=== PATIENT | male | born 1990 | race Caucasian/White ===

== ENCOUNTER 2018-02-16 14:44 | Inpatient (IN) ==
[2018-02-16 22:31] LABS: Baso # (Auto) 0.1 th/mm3 (0.0-0.2); Baso % (Auto) 0.9 % (0.0-2.0); Eos # (Auto) 0.1 th/mm3 (0.0-0.4); Eos % (Auto) 1.4 % (0.0-4.0); Hematocrit 41.9 % (39.0-51.0); Hemoglobin 13.9 gm/dL (13.0-17.0); Lymph # (Auto) 2.4 th/mm3 (1.0-4.8); Lymph % (Auto) 30.2 % (9.0-44.0); Mean Corpuscular HGB Conc 33.1 % (32.0-36.0); Mean Corpuscular Hemoglobin 27.7 pg (27.0-34.0); Mean Corpuscular Volume 83.8 fL (80.0-100.0); Mean Platelet Volume 7.8 fL (7.0-11.0); Mono # (Auto) 0.9 th/mm3 (0.0-0.9); Mono % (Auto) 11.6 % (0.0-8.0); Neut # (Auto) 4.4 th/mm3 (1.8-7.7); Neut % (Auto) 55.9 % (16.0-70.0); Platelet Count 221 th/mm3 (150-450); Red Cell Distribution Width 13.5 % (11.6-17.2); White Blood Count 7.9 th/mm3 (4.0-11.0)
[2018-02-16 22:45] LABS: Amphetamine Screen,Urine Neg (Neg); Barbiturate Screen,Urine Neg (Neg); Cannabinoid Screen,Urine Neg (Neg); Cocaine Screen,Urine Neg (Neg)
[2018-02-16 22:46] LABS: Opiate Screen,Urine Neg (Neg)
--- NOTE | 2018-02-16 22:48 | ED ---
HPI General Chief Complaint: Psychiatric Symptoms Stated Complaint: Psych Eval Time Seen by Provider: 02/16/18 22:00 History of Present Illness HPI Narrative: 27 yo M. Patient arrives voluntarily due to suicidal ideations. He reports his parents have him leave the house about 3 4 days ago. He has a history of suicide attempt with self-inflicted laceration to the right proximal arm causing a large laceration several years prior. He denies drug alcohol abuse. He states is currently homeless. He has a plan which includes jumping in front of traffic. MD complaint: suicidal ideation and feels depressed Duration: constant History of same: Yes Relieving factors: none Context: significant life stressor Related Data Home Medications Medication Instructions Recorded Confirmed No Known Home Medications 02/16/18 02/16/18 Allergies Allergy/AdvReac Type Severity Reaction Status Date / Time No Known Allergies Uncoded 02/23/10 12:47 Review of Systems Except as stated in HPI: all other systems reviewed are negative PMFSH Surgical History Surgical History History of surgery on arm (Acute) Social History Social History Substance History: No History of Abuse Smoking Status: Current every day smoker Tobacco Type: Cigarettes How Often Do You Have a Drink Containing Alcohol: Monthly or less Recent Travel in [facility] within the Last 8 Weeks: No Recent Out of Country Travel within the Last 8 Weeks: No Immunization History Tetanus Immunization: Unsure Hx Influenza Vaccine This Season: Unable to Assess Exam Narrative Exam Narrative: GENERAL: 27-year-old male well-nourished well-developed SKIN: Focused skin assessment warm/dry. HEAD: Atraumatic. Normocephalic. EYES: Pupils equal and round. No scleral icterus. No injection or drainage. ENT: No nasal bleeding or discharge. Mucous membranes pink and moist. NECK: Trachea midline. No JVD. CARDIOVASCULAR: Regular rate and rhythm. No murmur appreciated. RESPIRATORY: No accessory muscle use. Clear to auscultation. Breath sounds equal bilaterally. GASTROINTESTINAL: Abdomen soft, non-tender, nondistended. Hepatic and splenic margins not palpable. MUSCULOSKELETAL: No obvious deformities. No clubbing. No cyanosis. No edema. NEUROLOGICAL: Awake and alert. No obvious cranial nerve deficits. Motor grossly within normal limits. Normal speech. PSYCHIATRIC: Positive suicidal ideation. No homicidal ideation. Course Initial Documented Vital Signs Temperature 98.6 F 02/16/18 15:03 Pulse Rate 76 02/16/18 15:03 Respiratory Rate 20 02/16/18 15:03 Blood Pressure 115/68 02/16/18 15:03 Pulse Oximetry 98 02/16/18 15:03 Last Documented Vital Signs Temperature 98.6 F 02/16/18 15:03 Pulse Rate 76 02/16/18 22:07 Respiratory Rate 18 02/16/18 22:07 Blood Pressure 120/70 02/16/18 22:07 Pulse Oximetry 98 02/16/18 22:07 Medical Decision Making MDM Narrative Medical decision making narrative: Workup including drug screen and alcohol is negative. Patient is medically clear for psychiatric screening. Lab Data Lab results reviewed: Yes I reviewed the patient's lab results. Result diagrams: 02/16/18 22:21 02/16/18 22:21 Lab Results 02/16/18 02/16/18 02/16/18 Range/Units 22:21 22:21 22:21 WBC 7.9 (4.0-11.0) th/mm3 RBC 5.00 (4.50-5.90) mil/mm3 Hgb 13.9 (13.0-17.0) gm/dL Hct 41.9 (39.0-51.0) % MCV 83.8 (80.0-100.0) fL MCH 27.7 (27.0-34.0) pg MCHC 33.1 (32.0-36.0) % RDW 13.5 (11.6-17.2) % Plt Count 221 (150-450) th/mm3 MPV 7.8 (7.0-11.0) fL Neut % (Auto) 55.9 (16.0-70.0) % Lymph % (Auto) 30.2 (9.0-44.0) % [place] % (Auto) 11.6 H (0.0-8.0) % Eos % (Auto) 1.4 (0.0-4.0) % Baso % (Auto) 0.9 (0.0-2.0) % Neut # (Auto) 4.4 (1.8-7.7) th/mm3 Lymph # (Auto) 2.4 (1.0-4.8) th/mm3 [place] # (Auto) 0.9 (0.0-0.9) th/mm3 Eos # (Auto) 0.1 (0.0-0.4) th/mm3 Baso # (Auto) 0.1 (0.0-0.2) th/mm3 WBC Differential . Differential Comment Auto diff final Sodium 145 (136-145) meq/L Potassium 3.4 L (3.5-5.1) meq/L Chloride 109 H (98-107) meq/L Carbon Dioxide 30.6 (21.0-32.0) meq/L Anion Gap 5 (5-15) meq/L BUN 13 (7-18) mg/dL Creatinine 1.05 (0.60-1.30) mg/dL Estimated GFR 86 L (>89) mL/min Random Glucose 108 H (74-106) mg/dL Calcium 9.1 (8.5-10.1) mg/dL Total Bilirubin 0.4 (0.2-1.0) mg/dL AST 62 H (15-37) U/L ALT 25 (12-78) U/L Alkaline Phosphatase 58 (45-117) U/L Total Protein 7.3 (6.4-8.2) g/dL Albumin 4.3 (3.4-5.0) g/dL TSH 1.720 (0.358-3.740) uIU/mL Urine Opiates Screen Neg (Neg) Ur Barbiturates Screen Neg (Neg) Ur Amphetamines Screen Neg (Neg) U Benzodiazepines Scrn Neg (Neg) Urine Cocaine Screen Neg (Neg) U Cannabinoids Screen Neg (Neg) Serum Alcohol Less than 3 (0-5) mg/dL Discharge Plan Discharge Disposition Patient Disposition: 30 Still Patient Physicians Team ED Provider: Joseph Hutchinson Primary Care Provider: Primary Care Kaity Abarca Rxs /Orders / Referrals /Forms Prescriptions: No Action No Known Home Medications RF: 0 Status ED Status: Medically Cleared
[2018-02-16 22:51] LABS: Albumin 4.3 g/dL (3.4-5.0); Anion Gap 5 meq/L (5-15); Aspartate Aminotransferase 62 U/L (15-37); Blood Urea Nitrogen 13 mg/dL (7-18); Calcium 9.1 mg/dL (8.5-10.1); Carbon Dioxide 30.6 meq/L (21.0-32.0); Chloride 109 meq/L (98-107); Glomerular Filtration Rate 86 mL/min (>89); Glucose,Random 108 mg/dL (74-106); Potassium 3.4 meq/L (3.5-5.1); Sodium 145 meq/L (136-145)
[2018-02-16 23:01] LABS: Alanine Aminotransferase 25 U/L (12-78); Alkaline Phosphatase 58 U/L (45-117); Total Protein 7.3 g/dL (6.4-8.2)
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
[2018-02-17] MEDS ORDERED: Aluminum/Magnesium/Simethacone Susp 30 ML UDC PO PRN (18:06)
[2018-02-17] MEDS ORDERED: LORazepam 1 MG Tablet PO PRN (18:06)
[2018-02-18 07:29] LABS: Chol/HDL Ratio 1.98 Ratio; HDL Cholesterol 45.3 mg/dL (40.0-60.0)
[2018-02-18 07:33] LABS: Calcium 8.7 mg/dL (8.5-10.1)
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
[2018-02-18] MEDS: buPROPion 100 MG ER 12 HR Tablet PO SCH ×2 (13:04→21:31)
[2018-02-18 13:33] LABS: Hemoglobin A1c 4.7 % (4.3-6.0)
--- NOTE | 2018-02-18 13:38 | ECG ---
Date Performed: 02/18/2018 Time Performed: 13:21:10 PTAGE: 27 years EKG: SINUS BRADYCARDIA POSSIBLE LEFT ATRIAL ENLARGEMENT BORDERLINE ECG NO PREVIOUS TRACING DOCTOR: Rozina Cormier Interpretating Date/Time 02/18/2018 13:36:26
[2018-02-19] MEDS: buPROPion 100 MG ER 12 HR Tablet PO SCH ×2 (09:21→21:01)
--- NOTE | 2018-02-19 16:41 | P.PNPSY ---
Subjective Remarks: Reviewed electronic medical records and discussed case with staff. Follow-up was conducted in patient's room. Patient sitting on bed hair hanging in his. His mood is extremely depressed and his affect is sad. Reports his appetite is been good and that he slept well. Encouraged him to attempt to participate in some of the group activities. Nurse reports she has been cooperative, seclusive , quiet, and with no behaviors. Mental Status Examination Appearance: Disheveled, Malodorous Consciousness: Alert Orientation: x4 Motor Activity: Normal gait Speech: Hesitant, Slow Language: Adequate Fund of Knowledge: Adequate Attention and Concentration: Inadequate Memory: Unremarkable Mood: Other (Depressed) Affect: Sad, Blunt, Other (poor eye contact) Thought Process & Associations: Intact, Logical, Goal directed Thought Content: Appropriate Hallucination Type: None Delusion Type: None Suicidal Ideation: Yes Suicidal Plan: Yes (To jump in front of traffic) Suicidal Intention: Yes Homicidal Ideation: No Homicidal Plan: No Homicidal Intention: No Insight: Poor Judgment: Impulsive Assessment and Plan - Assessment (1) Adjustment disorder with depressed mood Code(s): F43.21 - Adjustment disorder with depressed mood Status: Acute - Plan Plan: Patient will be reevaluated tomorrow by the attending psychiatrist. Continue with current treatment plan. He continues to be depressed. Justification for Continued Inpatient Stay: Moving this patient to a less restrictive environment would likely result in decompensation.
[2018-02-20] MEDS: buPROPion 100 MG ER 12 HR Tablet PO SCH ×2 (08:51→15:28)
--- NOTE | 2018-02-20 11:34 | P.PNPSY ---
Subjective Remarks: Patient seen and examined with counselor and nurse. Chart reviewed. Case discussed with nursing staff who reports patient verbalized 7/10 depression this morning. On my examination today, the patient is disheveled and malodorous. He endorses ongoing depression. He endorses suicidal ideation and says that he has thoughts of suffocating himself with his sheets, although he does agree to alert nursing staff before acting on this suicide plan. He is in a camera room adjacent to the nursing station on the high acuity unit. He endorses intermittent CAH to self-injure as well as deprecatory AH, although he denies AVH now. Denies side effects from medications. Denies any history of seizure or eating disorder. Agreeable to adding an antipsychotic to help with voices. No physical complaints. Vital Signs Temp Pulse Resp BP Pulse Ox 02/19/18 17:29 97.8 F 59 L 17 105/58 L 100 Intake and Output 02/19/18 02/20/18 02/20/18 22:59 06:59 14:59 Other: Weight 49.7 kg Laboratory Tests 02/16/18 02/16/18 02/16/18 22:21 22:21 22:21 WBC 7.9 Hgb 13.9 Plt Count 221 Sodium Potassium Chloride Carbon Dioxide BUN Creatinine AST 62 H ALT 25 Alkaline Phosphatase 58 TSH 1.720 Urine Opiates Screen Neg Ur Barbiturates Screen Neg Ur Amphetamines Screen Neg U Benzodiazepines Scrn Neg Urine Cocaine Screen Neg U Cannabinoids Screen Neg Serum Alcohol Less than 3 02/18/18 05:50 WBC Hgb Plt Count Sodium 145 Potassium 4.0 Chloride 107 Carbon Dioxide 28.0 BUN 14 Creatinine 1.10 AST ALT Alkaline Phosphatase TSH Urine Opiates Screen Ur Barbiturates Screen Ur Amphetamines Screen U Benzodiazepines Scrn Urine Cocaine Screen U Cannabinoids Screen Serum Alcohol Labs reviewed. Mildly elevated AST noted. EKG reveals sinus bradycardia. QTc within normal limits. Review of Systems All other systems reviewed negative except as stated in HPI (Limitation: Poor historian) Mental Status Examination Appearance: Disheveled, Malodorous Consciousness: Alert Orientation: x4 Motor Activity: Other (No motor abnormalities noted) Speech: Hesitant, Slow Language: Adequate Fund of Knowledge: Adequate Attention and Concentration: Inadequate Memory: Unremarkable Mood: Other (Depressed) Affect: Other (Restricted) Thought Process & Associations: Intact, Logical, Goal directed, Other (Slowed) Thought Content: Hallucinations Hallucination Type: Auditory, Command Delusion Type: None Suicidal Ideation: Yes Suicidal Plan: Yes (Hanging himself with sheet) Suicidal Intention: No Homicidal Ideation: No Homicidal Plan: No Homicidal Intention: No Insight: Fair (At best) Judgment: Impulsive Assessment and Plan - Assessment (1) Severe recurrent major depression with psychotic features Code(s): F33.3 - Major depressive disorder, recurrent, severe with psychotic symptoms Status: Acute - Plan Plan: Given SI and intermittent CAH, place with 1:1 for safety; I have discussed need for 1:1 with charge account identification clerk. Add Zyprexa 5mg qHS for psychosis. R/B/A reviewed with patient. Continue Wellbutrin as ordered, although I will adjust dosing to avoid giving dose at HS. Continue to monitor on the high acuity unit. Counselor to call for collateral. Continue other medications and care as ordered. Justification for Continued Inpatient Stay: Medication changes. Impairment in reality construction. Monitoring for impairment in safety. High risk for decompensation in less restrictive environment. Discharge Planning: Pending psychiatric stabilization Request Healthcare Surrogate/Guardian Advocate?: No
[2018-02-21] MEDS: buPROPion 100 MG ER 12 HR Tablet PO SCH (08:08)
--- NOTE | 2018-02-21 11:44 | P.PNPSY ---
Subjective Remarks: Patient seen and examined with counselor and nurse. Chart reviewed. Case discussed with nursing staff who reports patient is now denying suicidal ideation. Case discussed in treatment team. On my examination today, the patient remains with one-to-one sitter for safety. He remains fairly disheveled. He is hypoverbal and affect is blunted. He denies any suicidal ideation presently and says that the last time he had thoughts regarding self- harm was around 7 PM last night. He denies any audiovisual hallucinations. Denies any side effects from medications. No physical complaints. Provides mother's name, Helena Alejandro, to counselor for collateral information; number is in patient's wallet. Vital Signs Temp Pulse Resp BP Pulse Ox 02/21/18 05:58 97.3 F L 61 18 109/57 L 99 02/20/18 19:00 18 02/20/18 16:07 98.7 F 74 18 104/51 L 97 Labs reviewed. No new labs. Review of Systems All other systems reviewed negative except as stated in HPI Mental Status Examination Appearance: Disheveled Consciousness: Alert Orientation: x4 Motor Activity: Other (No hand tremor, no cogwheeling, no dystonia, no dyskinesia, no other motor abnormalities noted although the patient is somewhat psychomotor slowed.) Speech: Hesitant, Slow Language: Adequate Fund of Knowledge: Adequate Attention and Concentration: Inadequate Memory: Unremarkable Mood: Other (Depressed) Affect: Blunt Thought Process & Associations: Intact, Logical, Goal directed, Other (Slowed) Thought Content: Appropriate Hallucination Type: None Delusion Type: None Suicidal Ideation: No Suicidal Plan: No Suicidal Intention: No Homicidal Ideation: No Homicidal Plan: No Homicidal Intention: No Insight: Fair Judgment: Impulsive Assessment and Plan - Assessment (1) Severe recurrent major depression with psychotic features Code(s): F33.3 - Major depressive disorder, recurrent, severe with psychotic symptoms Status: Acute - Plan Plan: Titrate Wellbutrin SR to 150 mg twice daily to target low mood. Continue Zyprexa at bedtime as ordered. Continue one-to-one for now but to consider discontinuing this tomorrow if suicidal ideation remains resolved. Continue to monitor on the high acuity unit. OT consultation. Continue other medications and care as ordered. Justification for Continued Inpatient Stay: Medication changes. High risk for decompensation in less restrictive environment. Discharge Planning: Pending psychiatric stabilization Request Healthcare Surrogate/Guardian Advocate?: No
[2018-02-21] MEDS: buPROPion 150 MG 12 HR Tablet PO SCH (16:05)
[2018-02-22] MEDS: buPROPion 150 MG 12 HR Tablet PO SCH ×2 (08:40→16:12)
--- NOTE | 2018-02-22 09:14 | P.PNPSY ---
Subjective Remarks: Patient seen and examined with nurse. Chart reviewed. Case discussed with nursing staff. Case discussed with counselor. Counselor has obtained collateral information from the patient's mother, and I have reviewed this with him. Illness course suggested by mother seems fairly persistent rather than episodic as would be more typical with a mood disorder, and there is a family history of schizophrenia; I wonder about a diagnosis of schizoaffective disorder in this patient. On my examination today, the patient complains of command auditory hallucinations overnight telling him to "let go." He endorses ongoing suicidal ideation with plan to try to suffocate himself. He remains with a one-to-one sitter for safety. Patient remains quite disheveled and his affect is quite flat. Denies side effects from medications. Complains of mild occipital headache without blurry vision or light or sound sensitivity. This is a typical headache for him. I will add some Tylenol as needed. No other physical complaints. Vital Signs Temp Pulse Resp BP Pulse Ox 02/22/18 05:33 97.7 F 72 17 107/58 L 98 02/21/18 17:53 97.6 F 76 17 107/65 98 Labs reviewed. No new labs. Review of Systems All other systems reviewed negative except as stated in HPI Mental Status Examination Appearance: Disheveled Consciousness: Alert Orientation: x4 Motor Activity: Other (Psychomotor slowing. No other motor abnormalities noted. ) Speech: Hesitant, Slow Language: Adequate Fund of Knowledge: Adequate Attention and Concentration: Inadequate Memory: Unremarkable Mood: Other (Depressed) Affect: Flat Thought Process & Associations: Intact, Logical, Goal directed, Other (Slowed) Thought Content: Appropriate Hallucination Type: Auditory, Command Delusion Type: None Suicidal Ideation: Yes Suicidal Plan: Yes Suicidal Intention: No Homicidal Ideation: No Homicidal Plan: No Homicidal Intention: No Insight: Fair Judgment: Impulsive Assessment and Plan - Assessment (1) Severe recurrent major depression with psychotic features Code(s): F33.3 - Major depressive disorder, recurrent, severe with psychotic symptoms Status: Acute - Plan Plan: Ongoing command auditory hallucinations to self injure in the setting of depressed mood. As noted above, collateral information is perhaps more suggestive of a primary psychotic illness with affective overlay. Titrate Zyprexa to 7.5 mg at bedtime to target psychotic symptoms. Continue Wellbutrin as ordered. Continue one-to-one for safety. The patient is reportedly taking meals and took a shower last night. Continue to monitor on the inpatient unit. Continue other medications and care as ordered. Justification for Continued Inpatient Stay: Monitoring for impairment in safety. Medication changes. Impairment in reality construction. High risk for decompensation in less restrictive setting. Discharge Planning: Pending psychiatric stabilization. I have asked counselor to work with mother to try to work on eventual discharge plan. Request Healthcare Surrogate/Guardian Advocate?: No
[2018-02-22] MEDS ORDERED: Acetaminophen 325 MG Tablet PO PRN (11:56)
--- NOTE | 2018-02-23 10:56 | P.PNPSY ---
Subjective Remarks: Patient seen and examined with nurse. Chart reviewed. Case discussed with nursing staff. No behavioral issues noted overnight. Patient remains on a one- to-one for safety. On my examination today, the patient remains hypoverbal and disheveled. Affect is perhaps a little more reactive today. He tells me that he is "still hearing stuff" and that the content of his hallucinations is unchanged. He continues to endorse vague suicidal ideation but does contract for safety on the inpatient unit today. He tells me that he can maintain safety without his one-to-one, and there has been no evidence of any attempts at self-harm while the patient has been on a one-to-one. Complains of some mild dizziness but otherwise denies side effects from medications. We will check orthostatic vital signs. No physical complaints. Vital Signs Temp Pulse Resp BP Pulse Ox 02/23/18 06:09 97.5 F L 68 16 100/55 L 97 02/22/18 16:46 98.2 F 75 18 117/56 L 98 Intake and Output 02/22/18 02/23/18 02/23/18 22:59 06:59 14:59 Other: Weight 50.9 kg Labs reviewed. No new labs. Review of Systems All other systems reviewed negative except as stated in HPI Mental Status Examination Appearance: Disheveled Consciousness: Alert Orientation: x4 Motor Activity: Other (Psychomotor slowing. No other motor abnormalities noted. ) Speech: Hesitant, Slow Language: Adequate Fund of Knowledge: Adequate Attention and Concentration: Inadequate Memory: Unremarkable Mood: Other (Depressed) Affect: Blunt (A little more reactive today) Thought Process & Associations: Intact, Logical, Goal directed, Other (Slowed) Thought Content: Appropriate Hallucination Type: Auditory, Command Delusion Type: None Suicidal Ideation: Yes Suicidal Plan: No Suicidal Intention: No Homicidal Ideation: No Homicidal Plan: No Homicidal Intention: No Insight: Fair Judgment: Impulsive Assessment and Plan - Assessment (1) Severe recurrent major depression with psychotic features Code(s): F33.3 - Major depressive disorder, recurrent, severe with psychotic symptoms Status: Acute - Plan Plan: Check a set of orthostatics. So long as patient is not significantly orthostatic, we will plan to titrate Zyprexa to 10mg qHS for psychosis and mood. Perhaps some modest brightening of affect noted today. Discontinue 1:1; patient now contracts for safety. He remains in a camera room adjacent to nursing station on the high acuity unit. Continue other medications and care as ordered. Justification for Continued Inpatient Stay: Impairment in safety. Medication changes. Impairment in reality construction. High risk for decompensation in less restrictive environment. Discharge Planning: Pending psychiatric stabilization. Request Healthcare Surrogate/Guardian Advocate?: No
[2018-02-23] MEDS: buPROPion 150 MG 12 HR Tablet PO SCH (15:38)
[2018-02-23] MEDS: OLANZapine 10 MG Tablet PO SCH (20:48)
--- NOTE | 2018-02-24 09:48 | P.PNPSY ---
Subjective Remarks: Patient seen and examined with counselor. Chart reviewed. Case discussed with nursing staff. No evidence of attempts at self injury off of one-to-one. Orthostatics were obtained and were reportedly negative, but I do not see these entered into the computer. I have asked the nursing staff to either enter the existing values or repeat the orthostatics that I might review them myself. Case discussed in treatment team. On my examination today, the patient endorses ongoing command auditory hallucinations to kill himself and also says the voices are telling him that other people are after him. He has ongoing suicidal ideation but contracts for safety on the unit. Denies side effects from medications besides mild lightheadedness. No other physical complaints. Vital Signs Temp Pulse Resp BP Pulse Ox 02/24/18 06:43 97.5 F L 77 18 109/69 98 02/23/18 16:08 97.5 F L 67 18 121/59 L 97 Labs reviewed. No new labs. Review of Systems All other systems reviewed negative except as stated in HPI Mental Status Examination Appearance: Disheveled Consciousness: Alert Orientation: x4 Motor Activity: Other (Ongoing psychomotor slowing. No motoric abnormalities noted otherwise.) Speech: Hesitant, Slow Language: Adequate Fund of Knowledge: Adequate Attention and Concentration: Inadequate Memory: Unremarkable Mood: Other (Depressed) Affect: Blunt (Remains slightly more reactive than at admission.) Thought Process & Associations: Intact, Logical, Goal directed, Other (Slowed) Thought Content: Appropriate Hallucination Type: Auditory, Command Delusion Type: None Suicidal Ideation: Yes Suicidal Plan: No Suicidal Intention: No Homicidal Ideation: No Homicidal Plan: No Homicidal Intention: No Insight: Fair Judgment: Impulsive Assessment and Plan - Assessment (1) Severe recurrent major depression with psychotic features Code(s): F33.3 - Major depressive disorder, recurrent, severe with psychotic symptoms Status: Acute - Plan Plan: Titrate Zyprexa over the weekend to 15 mg at bedtime. Review orthostatics. Continue Wellbutrin as ordered. I did ask the patient if there was an alternative medication that had proven more efficacious for the voices, but he tells me that he has never shared this symptom with providers in the past and so has not been placed on medication for it. Continue to monitor on the high acuity unit, camera room. Continue other medications and care as ordered. Justification for Continued Inpatient Stay: Medication changes. Impairment in safety. Impairment in reality construction. High risk for decompensation in less restrictive environment. Discharge Planning: Pending psychiatric stabilization. Request Healthcare Surrogate/Guardian Advocate?: No
[2018-02-24] MEDS: buPROPion 150 MG 12 HR Tablet PO SCH ×3 (11:05→16:38)
[2018-02-24] MEDS: OLANZapine 10 MG Tablet PO SCH (20:35)
[2018-02-25] MEDS: buPROPion 150 MG 12 HR Tablet PO SCH ×2 (08:12→15:04)
--- NOTE | 2018-02-25 14:51 | P.PNPSY ---
Subjective Remarks: Patient was seen and case discussed with nursing. Patient continues to express suicidal ideation with plan. He has thoughts of hanging herself in the bathroom were drinking the cleaning solution that the used to wipe off the tables. He has a history of cutting and multiple suicide attempts and borderline personality disorder cannot be ruled out. Patient is flat and shy. Mental Status Examination Appearance: Disheveled Consciousness: Alert Orientation: x4 Motor Activity: Other (Ongoing psychomotor slowing. No motoric abnormalities noted otherwise.) Speech: Hesitant, Slow Language: Adequate Fund of Knowledge: Adequate Attention and Concentration: Inadequate Memory: Unremarkable Mood: Other (Depressed) Affect: Blunt (Remains slightly more reactive than at admission.) Thought Process & Associations: Intact, Logical, Goal directed, Other (Slowed) Thought Content: Appropriate Hallucination Type: Auditory, Command Delusion Type: None Suicidal Ideation: Yes Suicidal Plan: Yes (Hanging himself) Suicidal Intention: Yes (Not at this time) Homicidal Ideation: No Homicidal Plan: No Homicidal Intention: No Insight: Fair Judgment: Impulsive Assessment and Plan - Assessment (1) Severe recurrent major depression with psychotic features Code(s): F33.3 - Major depressive disorder, recurrent, severe with psychotic symptoms Status: Acute - Plan Plan: We will order one-to-one. Nursing was informed Justification for Continued Inpatient Stay: Patient would decompensate in a less restrictive setting Request Healthcare Surrogate/Guardian Advocate?: No
[2018-02-25] MEDS: OLANZapine 15 MG Tablet PO SCH (20:57)
[2018-02-26] MEDS: buPROPion 150 MG 12 HR Tablet PO SCH ×2 (09:52→15:06)
--- NOTE | 2018-02-26 15:19 | P.PNPSY ---
Subjective Remarks: Patient was seen and case discussed with nursing. Patient's mood is improving. He says he no longer has suicidal ideation. He does not have any plans of drinking cleaning fluid or hanging himself. He continues on a one-to-one. His chief complaint is insomnia and per staff he has not been sleeping well. Affect remains flat patient is soft spoken Mental Status Examination Appearance: Disheveled Consciousness: Alert Orientation: x4 Motor Activity: Other (Ongoing psychomotor slowing. No motoric abnormalities noted otherwise.) Speech: Hesitant, Slow Language: Adequate Fund of Knowledge: Adequate Attention and Concentration: Inadequate Memory: Unremarkable Mood: Other (Depressed) Affect: Flat Thought Process & Associations: Intact, Logical, Goal directed, Other (Slowed) Thought Content: Appropriate Hallucination Type: Auditory, Command Delusion Type: None Suicidal Ideation: Yes Suicidal Plan: Yes (Hanging himself) Suicidal Intention: Yes (Not at this time) Homicidal Ideation: No Homicidal Plan: No Homicidal Intention: No Insight: Fair Judgment: Impulsive Assessment and Plan - Assessment (1) Severe recurrent major depression with psychotic features Code(s): F33.3 - Major depressive disorder, recurrent, severe with psychotic symptoms Status: Acute - Plan Plan: Add Remeron 15 mg p.o. nightly for mood and insomnia Justification for Continued Inpatient Stay: Patient would decompensate in a less restrictive setting Request Healthcare Surrogate/Guardian Advocate?: No
[2018-02-26] MEDS: OLANZapine 15 MG Tablet PO SCH (20:45)
[2018-02-26] MEDS: Mirtazapine 15 MG Tablet PO SCH (20:45)
[2018-02-27] MEDS: buPROPion 150 MG 12 HR Tablet PO SCH ×2 (09:55→16:11)
--- NOTE | 2018-02-27 10:13 | P.PNPSY ---
Subjective Remarks: Patient seen and examined with counselor. Chart reviewed. Case discussed with nursing staff. Patient was placed with a one-to-one over the weekend secondary to recurrence of suicidal ideation although this was subsequently discontinued. Case discussed with counselor. On my examination today, the patient presents with somewhat more reactive affect. He remains hypoverbal. His grooming is somewhat improved versus before the weekend. He endorses ongoing low mood and feelings of hopelessness as well as mild paranoia. He denies any audiovisual hallucinations. Denies any suicidal or homicidal ideation. Denies any side effects from medications. Complains of mild occipital headache, and we discuss adding a one-time dose of ibuprofen for this. No other physical complaints. Vital Signs Temp Pulse Resp BP Pulse Ox 02/27/18 06:07 98.1 F 78 17 112/73 98 02/26/18 17:20 97.9 F 79 18 110/70 97 Labs reviewed. No new labs. Review of Systems All other systems reviewed negative except as stated in HPI Mental Status Examination Appearance: Disheveled (Grooming is somewhat improved today) Consciousness: Alert Orientation: x4 Motor Activity: Other (Somewhat less psychomotor slowed. No other motor abnormalities noted.) Speech: Hesitant Language: Adequate Fund of Knowledge: Adequate Attention and Concentration: Inadequate Memory: Unremarkable Mood: Other (Depressed) Affect: Blunt (Affect somewhat more reactive today) Thought Process & Associations: Intact, Logical, Goal directed, Other (Slowed) Thought Content: Appropriate Hallucination Type: None Delusion Type: None Suicidal Ideation: No Suicidal Plan: No Suicidal Intention: No Homicidal Ideation: No Homicidal Plan: No Homicidal Intention: No Insight: Fair Judgment: Impulsive Assessment and Plan - Assessment (1) Severe recurrent major depression with psychotic features Code(s): F33.3 - Major depressive disorder, recurrent, severe with psychotic symptoms Status: Acute - Plan Plan: Patient's psychiatric symptoms do seem to be slowly improving with pharmacotherapy. Continue current psychotropics as ordered. To consider further adjustment tomorrow. Ibuprofen 800 mg once for headache. Continue to monitor on the high acuity unit, camera room. Continue other medications and care as ordered. Justification for Continued Inpatient Stay: Monitoring for impairment in safety. Medication changes anticipated. High risk for decompensation in less restrictive environment. Discharge Planning: Pending psychiatric stabilization Request Healthcare Surrogate/Guardian Advocate?: No
[2018-02-27] MEDS: OLANZapine 15 MG Tablet PO SCH (20:24)
[2018-02-27] MEDS: Mirtazapine 15 MG Tablet PO SCH (20:24)
[2018-02-28] MEDS: buPROPion 150 MG 12 HR Tablet PO SCH ×2 (08:36→15:58)
--- NOTE | 2018-02-28 10:18 | P.PNPSY ---
Subjective Remarks: Patient seen and examined with counselor and nurse. Chart reviewed. Case discussed with nursing staff. Case discussed in treatment team. Counselor has spoken with patient's mother who reports that the patient may be able to stay with a friend in [place] after discharge. On my examination today, the patient remains depressed, hypoverbal with a blunted affect. There is some more affective reactivity today versus earlier in the hospital stay. He endorses ongoing command auditory hallucinations to self injure and notes that he struggles chronically with voices even when his mood is not poor. He has vague suicidal ideation but contracts for safety on the inpatient unit. Denies side effects from medications. Has a mild resting hand tremor on exam but notes that this is chronic. No physical complaints. Vital Signs Temp Pulse Resp BP Pulse Ox 02/28/18 05:55 97.5 F L 70 18 99/58 L 97 02/27/18 17:03 97.5 F L 79 18 109/78 100 Labs reviewed. No new labs. Review of Systems All other systems reviewed negative except as stated in HPI Mental Status Examination Appearance: Disheveled (Somewhat improved) Consciousness: Alert Orientation: x4 Motor Activity: Normal gait, Other (Mild resting tremor. No cog wheeling) Speech: Hesitant Language: Adequate Fund of Knowledge: Adequate Attention and Concentration: Inadequate Memory: Unremarkable Mood: Other (Depressed) Affect: Blunt Thought Process & Associations: Intact, Logical, Goal directed, Other (Slowed) Thought Content: Appropriate Hallucination Type: Auditory, Command Delusion Type: None Suicidal Ideation: Yes Suicidal Plan: No Suicidal Intention: No Homicidal Ideation: No Homicidal Plan: No Homicidal Intention: No Insight: Fair Judgment: Impulsive Assessment and Plan - Assessment (1) Schizoaffective disorder, depressive type Code(s): F25.1 - Schizoaffective disorder, depressive type Status: Acute - Plan Plan: Given additional history, diagnosis does seem more consistent with schizoaffective disorder, depressive type, and I have adjusted the diagnosis accordingly. Titrate Zyprexa to 20 mg at bedtime. Continue other psychotropics as ordered. Continue to monitor in camera room adjacent to nursing station on high acuity unit. Continue other medications and care as ordered. Justification for Continued Inpatient Stay: Medication changes. Impairment in reality construction. High risk for decompensation in less restrictive environment. Discharge Planning: Pending psychiatric stabilization. Request Healthcare Surrogate/Guardian Advocate?: No
[2018-02-28] MEDS: Mirtazapine 15 MG Tablet PO SCH (20:22)
[2018-02-28] MEDS: OLANZapine 10 MG Tablet PO SCH (20:23)
[2018-03-01] MEDS: buPROPion 150 MG 12 HR Tablet PO SCH ×2 (08:59→15:04)
--- NOTE | 2018-03-01 11:26 | P.PNPSY ---
Subjective Remarks: Patient seen and examined with counselor. Chart reviewed. Case discussed with nursing staff. No behavioral issues noted overnight. Case discussed with counselor who reports that the patient on discharge may go to stay with a friend who lives in [place]. On my examination today, the patient claims to feel "more depressed" today versus yesterday without apparent precipitant or trigger. He says that he was experiencing some auditory hallucinations this morning but not presently. Affect actually seems brighter today in spite of reported lower mood. Vague SI but continues to contract for safety on the inpatient unit. Out of bed and in the day area more but not socializing much. No side effects from medications. No physical complaints. Vital Signs Temp Pulse Resp BP Pulse Ox 03/01/18 05:57 97.3 F L 93 H 15 111/62 98 03/01/18 05:37 97.3 F L 93 H 15 111/65 98 02/28/18 17:48 97.7 F 74 16 101/64 98 Labs reviewed. Review of Systems All other systems reviewed negative except as stated in HPI Mental Status Examination Appearance: Other (Fair) Consciousness: Alert Orientation: x4 Motor Activity: Normal gait, Other (No motor abnormal movements noted.) Speech: Hesitant Language: Adequate Fund of Knowledge: Adequate Attention and Concentration: Inadequate Memory: Unremarkable Mood: Other (Depressed, reportedly more so today) Affect: Other (More full and reactive) Thought Process & Associations: Intact, Logical, Goal directed, Linear Thought Content: Appropriate Hallucination Type: Auditory, Command Delusion Type: None Suicidal Ideation: Yes Suicidal Plan: No Suicidal Intention: No Homicidal Ideation: No Homicidal Plan: No Homicidal Intention: No Insight: Fair Judgment: Impulsive Assessment and Plan - Assessment (1) Schizoaffective disorder, depressive type Code(s): F25.1 - Schizoaffective disorder, depressive type Status: Acute - Plan Plan: Titrate Remeron to 30mg qHS to target low mood. Continue Zyprexa and Wellbutrin as ordered. Continue to monitor on the inpatient unit. Continue other medications and care as ordered. Justification for Continued Inpatient Stay: Medication changes. Impairment in reality construction. High risk for decompensation in less restrictive environment. Discharge Planning: Pending psychiatric stabilization. Request Healthcare Surrogate/Guardian Advocate?: No
[2018-03-01] MEDS: OLANZapine 10 MG Tablet PO SCH (20:31)
[2018-03-01] MEDS: Mirtazapine 15 MG Tablet PO SCH (20:31)
[2018-03-02] MEDS: buPROPion 150 MG 12 HR Tablet PO SCH ×2 (08:08→14:55)
--- NOTE | 2018-03-02 11:26 | P.PNPSY ---
Subjective Remarks: Patient seen and examined. Chart reviewed. Case discussed with nursing staff. On my examination today, the patient now says that he does not want to go stay with his friend Rory in [place]. This would otherwise render him homeless. He complains of some command auditory hallucinations to self injure. There is a somewhat manipulative quality to his symptom report, and I am beginning to suspect some degree of possible symptom exaggeration for jail. When I indicate that if he is really experiencing these CAH we should titrate Zyprexa to target this symptom and conversely say that if his symptoms are related more to his psychosocial situation, the patient replies "just give me what I have now " (i.e. don't change the dose). No active suicidal ideation. No side effects from medications. No physical complaints. Vital Signs Temp Pulse Resp BP Pulse Ox 03/02/18 05:54 97.4 F L 84 17 95/53 L 97 03/01/18 16:37 97.7 F 82 18 112/68 97 Labs reviewed. No new labs. Review of Systems All other systems reviewed negative except as stated in HPI Mental Status Examination Appearance: Other (Fair grooming) Consciousness: Alert Orientation: x4 Motor Activity: Normal gait, Other (No motoric abnormalities noted. Still somewhat psychomotor slowed.) Speech: Hesitant Language: Adequate Fund of Knowledge: Adequate Attention and Concentration: Inadequate Memory: Unremarkable Mood: Other (Dysphoric) Affect: Blunt Thought Process & Associations: Intact, Logical, Goal directed, Linear Thought Content: Appropriate Hallucination Type: Auditory, Command Delusion Type: None Suicidal Ideation: No Homicidal Ideation: No Insight: Fair Judgment: Impulsive Assessment and Plan - Assessment (1) Schizoaffective disorder, depressive type Code(s): F25.1 - Schizoaffective disorder, depressive type Status: Acute - Plan Plan: Although I do not doubt that the patient has bunny ovidio psychiatric symptomatology, as noted above, I do wonder about a degree of symptom exaggeration at this point. Per patient preference, I will continue current psychotropics as ordered although his Zyprexa could be titrated to target reported command auditory hallucinations if these persist. Continue to monitor on the inpatient unit. Continue other medications and care as ordered. Justification for Continued Inpatient Stay: Risk for decompensation in less restrictive environment. Discharge Planning: Pending psychiatric stabilization. Possible discharge after the weekend. Request Healthcare Surrogate/Guardian Advocate?: No
[2018-03-02] MEDS: OLANZapine 10 MG Tablet PO SCH (21:38)
[2018-03-02] MEDS: Mirtazapine 15 MG Tablet PO SCH (21:38)
[2018-03-03] MEDS: buPROPion 150 MG 12 HR Tablet PO SCH ×2 (09:08→14:41)
--- NOTE | 2018-03-03 14:20 | P.PNPSY ---
Subjective Remarks: Patient seen in day room with floor staff, chart reviewed, progress notes reviewed. Patient calm with me though with poor eye contact slow brief responses. Continues with somewhat of a sad face though also there appears to be a component of perhaps manipulation with him. For now continue treatment he does denies suicidality with me at this time Review of Systems All other systems reviewed negative except as stated in HPI Mental Status Examination Appearance: Other (Fair grooming) Consciousness: Alert Orientation: x4 Motor Activity: Normal gait, Other (No motoric abnormalities noted. Still somewhat psychomotor slowed.) Speech: Hesitant Language: Adequate Fund of Knowledge: Adequate Attention and Concentration: Inadequate Memory: Unremarkable Mood: Other (Dysphoric) Affect: Blunt Thought Process & Associations: Intact, Logical, Goal directed, Linear Thought Content: Appropriate Hallucination Type: Auditory, Command Delusion Type: None Suicidal Ideation: No Suicidal Plan: No Suicidal Intention: No Homicidal Ideation: No Homicidal Plan: No Homicidal Intention: No Insight: Fair Judgment: Impulsive Assessment and Plan - Assessment (1) Schizoaffective disorder, depressive type Code(s): F25.1 - Schizoaffective disorder, depressive type Status: Acute - Plan Plan: Patient remains somewhat depressed though also somewhat vigilant and perhaps manipulative Justification for Continued Inpatient Stay: At this time patient would decompensate a place to the lower level of care Discharge Planning: To be determined Request Healthcare Surrogate/Guardian Advocate?: No
[2018-03-03] MEDS: Mirtazapine 15 MG Tablet PO SCH (21:00)
[2018-03-03] MEDS: OLANZapine 10 MG Tablet PO SCH (21:00)
[2018-03-04] MEDS: buPROPion 150 MG 12 HR Tablet PO SCH ×2 (08:39→16:03)
--- NOTE | 2018-03-04 11:20 | P.PNPSY ---
Subjective Remarks: Pt seen and discussed with staff.Chart reviewed.He has been compliant with medications and denies side effects. He has been cooperative with care. No aggression or agitation on unit. Mental Status Examination Appearance: Other (Fair grooming) Consciousness: Alert Orientation: x4 Motor Activity: Normal gait, Other (No motoric abnormalities noted. Still somewhat psychomotor slowed.) Speech: Hesitant Language: Adequate Fund of Knowledge: Adequate Attention and Concentration: Inadequate Memory: Unremarkable Mood: Sad Affect: Sad Thought Process & Associations: Intact, Logical, Goal directed, Linear Thought Content: Appropriate Hallucination Type: Auditory, Command Delusion Type: None Suicidal Ideation: No Suicidal Plan: No Suicidal Intention: No Homicidal Ideation: No Homicidal Plan: No Homicidal Intention: No Insight: Fair Judgment: Impulsive Assessment and Plan - Assessment (1) Schizoaffective disorder, depressive type Code(s): F25.1 - Schizoaffective disorder, depressive type Status: Acute - Plan Plan: Continue current tx plan Justification for Continued Inpatient Stay: risk of decompensation Request Healthcare Surrogate/Guardian Advocate?: No
[2018-03-04] MEDS: OLANZapine 10 MG Tablet PO SCH (20:55)
[2018-03-04] MEDS: Mirtazapine 15 MG Tablet PO SCH (20:56)
[2018-03-05 06:12] VITALS: RESP 16; TEMP 98.1
[2018-03-05] MEDS: buPROPion 150 MG 12 HR Tablet PO SCH ×2 (08:57→16:54)
--- NOTE | 2018-03-05 10:57 | P.PNPSY ---
Subjective Remarks: Pt seen and discussed with staff. He has been isolative to his room this morning. He has been compliant with medications and is tolerating them without side effects. No SI/HI. He slept well last night. Mental Status Examination Appearance: Other (Fair grooming) Consciousness: Alert Orientation: x4 Motor Activity: Normal gait, Other (No motoric abnormalities noted. Still somewhat psychomotor slowed.) Speech: Hesitant Language: Adequate Fund of Knowledge: Adequate Attention and Concentration: Inadequate Memory: Unremarkable Mood: Sad Affect: Sad Thought Process & Associations: Intact, Logical, Goal directed, Linear Thought Content: Appropriate Hallucination Type: Auditory, Command Delusion Type: None Suicidal Ideation: No Suicidal Plan: No Suicidal Intention: No Homicidal Ideation: No Homicidal Plan: No Homicidal Intention: No Insight: Fair Judgment: Impulsive Assessment and Plan - Assessment (1) Schizoaffective disorder, depressive type Code(s): F25.1 - Schizoaffective disorder, depressive type Status: Acute - Plan Plan: Continue current tx plan Justification for Continued Inpatient Stay: risk of decompensation Request Healthcare Surrogate/Guardian Advocate?: No
[2018-03-05] MEDS: OLANZapine 10 MG Tablet PO SCH (21:27)
[2018-03-05] MEDS: Mirtazapine 15 MG Tablet PO SCH (21:28)
[2018-03-06 06:21] VITALS: BP 113/65; PULSE 84; O2SAT 97
[2018-03-06] MEDS: buPROPion 150 MG 12 HR Tablet PO SCH (08:30)
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
== END 2018-03-06 13:10 | disposition home or self-care (01) ==
LOC: NEPD 14:44 → NEDA 02-17 18:05 → H270 02-17 19:52
PROVIDERS: ADMIT Psychiatry & Neurology Psychiatry; ATTEND Psychiatry & Neurology Psychiatry